=== PATIENT | male | born 1955 | race Caucasian/White ===

== ENCOUNTER 2023-12-18 19:12 | Emergency (ER) | payer OTHER, SELFPAY ==
[~2023-12-18] VITALS: Ht 182.9 cm; Wt 57.6 kg
[2023-12-18 20:04] VITALS: BP_SYST 190; PULSE 93; RESP 28; TEMP 98.7; O2SAT 95
[2023-12-18] MEDS: methylPREDNISolone SOD SUCC/PF 62.5 MG/ML VIAL IVP ONE (20:15)
[2023-12-18] MEDS ORDERED: METH-776 PO (21:23)
[2023-12-18 21:43] LABS: BASOPHILS % (AUTO) 0.3 % (0.0-2.0); EOSINOPHILS % (AUTO) 0.3 % (0.0-4.0); HEMATOCRIT 43.4 % (36-54); HEMOGLOBIN 14.5 g/dL (14.0-18.0); LYMPHOCYTES # (AUTO) 0.8 K/uL (1.0-5.5); LYMPHOCYTES % (AUTO) 8.5 % (20.5-51.5); MEAN CORPUSCULAR HEMOGLOBIN 31 pg (27-31); MEAN CORPUSCULAR HGB CONC 33 % (32-36); MEAN CORPUSCULAR VOLUME 92 fL (79.0-98.0); MONOCYTES # (AUTO) 0.7 K/uL (0.0-1.0); MONOCYTES % (AUTO) 7.7 % (1.7-9.3); NEUTROPHILS # (AUTO) 7.7 K/uL (1.8-7.7); NEUTROPHILS % (AUTO) 83.2 % (40.0-70.0); PLATELET COUNT (AUTO) 284 K/uL (130-430); RED BLOOD CELL COUNT(AUTO) 4.73 MIL/uL (4.2-6.2); WHITE BLOOD COUNT (AUTO) 9.3 K/uL (4.8-10.8)
[2023-12-18 22:01] LABS: ANION GAP 10 (5-15); CALCIUM 9.3 mg/dL (8.4-11.0); CARBON DIOXIDE 24 mmol/L (23-29); CHLORIDE 106 mmol/L (98-107); CREATININE 1.19 mg/dL (0.55-1.30); GFR AFRICAN AMERICAN 78 mL/min (>90); GLUCOSE 72 mg/dL (74-106); POTASSIUM 3.9 mmol/L (3.5-5.1); SODIUM SERUM 140 mmol/L (136-145); UREA NITROGEN, BLOOD 23 mg/dL (8-21)
[2023-12-18 22:16] LABS: BILIRUBIN,URINE NEGATIVE (NEGATIVE); BLOOD, URINE 3+ (NEGATIVE); COLOR,URINE YELLOW (YELLOW); GLUCOSE,URINE NEGATIVE (NEGATIVE); KETONES,URINE NEGATIVE (NEGATIVE); LEUKOCYTE ESTERASE ,URINE TRACE (NEGATIVE); NITRITE, URINE POSITIVE (NEGATIVE); PROTEIN URINE 1+ (NEGATIVE); UROBILINOGEN,URINE 0.2 (0.2-1.0)
[2023-12-18 22:26] LABS: CLARITY/URINE HAZY (CLEAR)
[2023-12-18 22:32] LABS: GFR NON AFRICAN-AMERICAN 65 mL/min (>90)
[2023-12-18 22:36] VITALS: BP_SYST 149; PULSE 97; RESP 14; TEMP 98.7; O2SAT 94
[2023-12-18 22:47] LABS: BACTERIA,URINE MODERATE /HPF (None Seen); WBC,URINE 0-3 /HPF (0-3)
== END 2023-12-18 22:36 | disposition home or self-care (01) ==
LOC: SED 19:12
DX: J44.1 Chronic obstructive pulmonary disease with (acute) exacerbation (principal); R33.9 Retention of urine, unspecified; I10 Essential (primary) hypertension; Z79.899 Other long term (current) drug therapy
CPT/HCPCS: 36415; 71045; 80048; 81000; 81001; 81015; 83880; 84484; 85025; 87040; 87086; 93005; 96372; 99285; J2930

== ENCOUNTER 2023-12-20 01:03 | Emergency (ER) | payer OTHER ==
[~2023-12-20] VITALS: Ht 182.9 cm; Wt 57.6 kg
[~2023-12-20 01:03] MED LIST: METH-776 PO
[2023-12-20 01:20] VITALS: BP_SYST 171; PULSE 60; RESP 16; TEMP 97.9; O2SAT 97
[2023-12-20 02:07] VITALS: BP_SYST 171; PULSE 60; RESP 16; TEMP 97.9; O2SAT 97
== END 2023-12-20 02:07 | disposition home or self-care (01) ==
LOC: SED 01:03
DX: T83.091A Other mechanical complication of indwelling urethral catheter, initial encounter (principal); J44.9 Chronic obstructive pulmonary disease, unspecified; I10 Essential (primary) hypertension; Z79.899 Other long term (current) drug therapy
CPT/HCPCS: 99284